=== PATIENT | male | born 1990 | race Caucasian/White ===

== ENCOUNTER 2023-10-09 00:24 | Emergency (ER) | payer OTHER, SELFPAY ==
[2023-10-09 00:36] VITALS: BP 163/104
[2023-10-09 01:26] LABS: Amphetamines Negative (Negative); Barbiturates Negative (Negative); Benzodiazepines Negative (Negative); Buprenorphine Negative (Negative); Cocaine Negative (Negative); Marijuana Negative (Negative); Methadone Negative (Negative); Methamphetamines Negative (Negative); Opiates Negative (Negative); Phencyclidine Negative (Negative); Tricyclic Antidepressants Negative (Negative)
--- NOTE | 2023-10-09 02:28 | ED.GENMED ---
History of Present Illness
General
Chief Complaint: Crisis Evaluation
Source: patient
Time Seen by Provider: 10/09/23 00:53
History of Present Illness
History of Present Illness:
This is a 32-year-old male who was brought in by police after mom and parents called 911. The patient reportedly sent a concerning suicide text. The patient has been thinking he was Lucifer and has had suicidal thoughts and considered hanging
himself. Also said he wanted to by a sword. Family found him with a wire in his hand when he showed up. On my evaluation patient does state that he 'sinned like Judas'. Patient states he has been suicidal. Clearly anabaptism hallucinations
during exam.
Past History
Past History
ED Past Medical History: Psychiatric (Anxiety, depression)
Phy Exam
Physical Exam
Physical Exam:
CONSTITUTIONAL Vital signs reviewed, Patient alert and oriented to person, place and time. Well-appearing
HEAD atraumatic, normocephalic.
EYES eyelids normal to inspection, Extraocular muscles intact, Conjunctiva normal, Sclera normal.
NECK normal range of motion, Trachea midline, no jugular venous distention.
RESP no respiratory distress
BACK No obvious deformities
UPPER EXTREMITY Gross Range of motion normal, gross motor strength normal
LOWER EXTREMITY Gross range of motion normal, Gross motor strength normal
NEURO Speech normal, No focal motor deficits include, Supa coma scale 15, Memory normal, Cranial Nerves intact to screening exam.
SKIN Skin warm, dry, and normal in color.
PSYCHIATRIC Patient oriented to person place and time, strange affect. Poor insight.
Course
Orders/Labs/Results
Orders:
Orders
10/09/23 01:05
Drug Screen, Urine [Urine Drug Abuse Screen] Urgent
Date Specimen was Collected: 10/09/23
Time Specimen was Collected: 01:04
10/09/23 01:33
Crisis Consult Urgent
Reason for Consult: pt hallucinating, thinks he is Lucifer, or Thomas
10/09/23 05:24
Asenapine Sublingual [Saphris] 10 mg SL NOW STA
Vital Signs
Initial and Last Documented VS:
Initial Vital Signs
Temp Pulse Resp BP Pulse Ox
98.2 F 97 16 163/104 98
10/09/23 00:36 10/09/23 00:36 10/09/23 00:36 10/09/23 00:36 10/09/23 00:36
Last Documented Vital Signs
Temp Pulse Resp BP Pulse Ox
98.2 F 98 16 154/91 97
10/09/23 00:36 10/09/23 05:45 10/09/23 05:45 10/09/23 05:45 10/09/23 05:45
MDM/Problems Addressed
MDM/Problems Addressed:
Acute psychosis
*Pulse Oximetry
Patient hypoxic: no
*Critical Care Note
Total Time (30-74mins, 75-104mins- exclusive of procedures): Not Applicable
Data Reviewed
Source: patient
Further Testing Considered But Not Given:
Consider head CT but no focal deficits and no trauma
Patient Management
Escalation/DeEscalation of care consider admission/obs:
Patient clearly with psychosis. Threatened suicide. Reportedly had axes at home. Patient is agreeable to psychiatric help but 302 backup written by parents. Await placement
ED Attending Note
-
Portions of this chart may have been created with voice recognition software.� Occasional wrong word or��sound alike� substitutions may have occurred due to the inherent limitations of voice recognition software.
Discharge Plan
Departure
Patient Disposition: Psych Facility
Date of Disposition: 10/09/23
Time of Disposition: 02:28
Discharge Problem:
Psychosis
Referrals:
UNKNOWN - PT NOT,INTERVIEWE [Family Provider] -
Interventions
Interventions:
*Risk Screen - Suicide Last Done: 10/09/23 05:30
*General Assessment Last Done: 10/09/23 05:30
*Neglect/Abuse Screening Last Done: 10/09/23 05:30
*ED COVID-19 Vaccine History Last Done: 10/09/23 00:36
ED-Psychological Assessment Last Done: 10/09/23 01:07
Discharge Date and Time
Print Language: TRINIDADIAN
[2023-10-09] MEDS: SAPHRIS 10 MG SL (05:28)
[2023-10-09 05:30] VITALS: BP 153/88
[2023-10-09 05:45] VITALS: BP 154/91
== END 2023-10-09 11:17 ==
LOC: EMR 00:24
PROVIDERS: CONSULT PHYSICIAN Psychiatry & Neurology Psychiatry; EMERGENCY PHYSICIAN Emergency Medicine
DX: F23 Brief psychotic disorder (principal); Z65.3 Problems related to other legal circumstances
CPT/HCPCS: 99285; 80306

== ENCOUNTER 2023-11-21 09:39 | Emergency (ER) | payer OTHER, SELFPAY ==
--- NOTE | 2023-11-21 09:57 | EDRN ---
Pt breathing very fast and rubbing his head very hard and crying out loudly on arrival to room in w/c. Dr. Luke in room w/ pt now. Both parents in room w/ pt now.
[2023-11-21 10:03] VITALS: BMI 21.8
[2023-11-21 10:16] VITALS: BP 140/93
--- NOTE | 2023-11-21 10:16 | ED.GENMED ---
History of Present Illness
General
Chief Complaint: Psychiatric Problem
Source: family
Exam Limitations: clinical condition
Time Seen by Provider: 11/21/23 10:00
History of Present Illness
History of Present Illness:
33-year-old male with a recent diagnosis of schizophrenia. Currently on bupropion 150 mg twice daily and Caplyta 42 mg daily. He was admitted in [place] and discharged about 6 weeks ago he has had aggression of symptoms over the week. Most of his
paranoia and psychosis is related to druze issues. He is not eating not sleeping not caring for self.
Past History
Past History
ED Past Medical History: Psychiatric (Anxiety, depression)
Review of Systems
Review of Systems
All Other Systems: Not applicable
Respiratory: Reports no symptoms
Cardiac: Reports no symptoms
Phy Exam
Physical Exam
Physical Exam:
GENERAL: Patient initially in a wheelchair being wheeled down the matt screaming yelling severe tremors. Eyes very wide open
EYE: Orbits normal.
NECK: Supple
ENT: Pharynx without erythema
CARDIAC: Tachycardic and regular
LUNGS: Hyperventilating
ABDOMEN: Soft, without focal tenderness or distention
NEUROLOGICAL: Nonfocal. Alert. Aware of his name knows his parents. Knows his age. Thinks he is in heaven. No cogwheeling. No muscle rigidity
SKIN: Warm and dry, no rash or lesion, no discoloration, skin intact.
MUSCULOSKELETAL: No edema,no deformity.Good color
PSYCH: Acutely psychotic. Paranoid delusions concerning druze issues
Course
Orders/Labs/Results
Orders:
Orders
11/21/23 10:00
Crisis Consult Urgent
Reason for Consult: psychotic breakdown
11/21/23 10:04
EKG [Electrocardiogram (*1)] Urgent
Reason for Study: QTc Monitoring
EKG- Treatment ONCE
11/21/23 10:11
Acetaminophen Urgent
Alcohol Urgent
Complete Blood Count/With Diff Urgent
Comprehensive Metabolic Panel Urgent
Creatine Phosphokinase Urgent
TSH Reflex To Free T4 Urgent
11/21/23 10:20
Asenapine Sublingual [Saphris] 10 mg SL NOW STA
11/21/23 11:01
Add On- LAB Urgent
Tests Added?: cpk,aspirin,tylenol
11/21/23 11:03
Lorazepam [Ativan] 1 mg PO Q4HPRN PRN
11/21/23 11:28
Urinalysis Urgent
Date Specimen was Collected: 11/21/23
Time Specimen was Collected: 11:26
Comment: ADD ON
Urine Drug Abuse Screen Urgent
Date Specimen was Collected: 11/21/23
Time Specimen was Collected: 11:26
11/21/23 12:06
Add On- LAB Urgent
Tests Added?: urinalysis
11/21/23 12:42
BMP [Basic Metabolic Panel] Urgent
Salicylate Urgent
Comment: ADD ON
11/21/23 13:14
Add On- LAB Urgent
Tests Added?: aspirin
11/21/23 20:00
Asenapine Sublingual [Saphris] 10 mg SL BID
Abnormal Lab Results
11/21/23 11/21/23 11/21/23
10:11 11:28 12:42
Absolute Monos (auto) 1.1 H 10^3/uL
(0.1-0.6)
Monocytes % 12.1 H %
(1.7-9.3)
Chloride 95 L mmol/L
(98-107)
Carbon Dioxide 11 L* mmol/L
(22-30)
Glucose 113 H mg/dl
(70-99)
Calcium 10.5 H mg/dl
(8.4-10.2)
ALT 51 H U/L
(0-50)
Total Protein 8.3 H g/dl
(6.3-8.2)
Albumin 5.8 H g/dl
(3.5-5.0)
Urine Ketones 1+ A
(Negative)
Salicylates < 1.0 L mg/dl
(2.0-20.0)
Acetaminophen < 10 L ug/ml
(10-30)
11/21/23 10:11
11/21/23 12:42
Vital Signs
Initial and Last Documented VS:
Initial Vital Signs
Temp Pulse Resp BP Pulse Ox
98.9 F 130 18 140/93 98
11/21/23 10:16 11/21/23 10:16 11/21/23 10:16 11/21/23 10:16 11/21/23 10:16
Last Documented Vital Signs
Temp Pulse Resp BP Pulse Ox
98.9 F 100 18 125/80 98
11/21/23 10:16 11/21/23 11:30 11/21/23 11:30 11/21/23 11:30 11/21/23 11:30
MDM/Problems Addressed
Differential Diagnosis Includes:
Patient with a psychotic breakdown. Danger to self. Clearly warrants inpatient psychiatric management. Doubt acute medical issue. EKG done to evaluate QT interval. He does have some nonspecific T wave changes but this is not a ischemic cardiac
issue. Likely rate related. Will order Saphris. Psychiatry was consulted along with crisis immediately. Psychiatry, wonderfully was present almost immediately on evaluation. Agree with Saphris. Doubt acute medical issue but labs thyroid
pending. No acute issues with drug or alcohol. Reported alcohol issues in his 20s
*Pulse Oximetry
Patient hypoxic: no
*EKG
Interpreted by ED Provider?: Yes
Interpretation: abnormal
Comparison EKG: no comparison EKG present
Heart Rate: 129
Rate: tachycardiac
Rhythm: sinus
Hershey: normal axis
Interval: normal interval
QRS Pattern: normal QRS
Ischemia: T-wave inversion
Data Reviewed
Review of Other/Old Records Reveals: Labs and Other (Previous ER evaluation)
Update Note
Update Note:
1225... Patient has been resting comfortably. Seen by psychiatry. Medically stable except for a anion gap metabolic acidosis. Lactic today combination of muscle activity almost seizure-like activity prior to ER evaluation and possible
ketoacidosis. We will repeat the BMP now.
Patient medically cleared and stable.
I was asked to reevaluate the patient. There was concerns for observation that some of his tremors might be seizures. However I witnessed these episodes and these were clearly tremors. He had no loss of consciousness no no postictal issue. He
currently is mildly sleepy but cooperative.
ED Attending Note
-
Portions of this chart may have been created with voice recognition software.� Occasional wrong word or��sound alike� substitutions may have occurred due to the inherent limitations of voice recognition software.
Discharge Plan
Departure
Patient Disposition: Psych Facility
Date of Disposition: 11/21/23
Time of Disposition: 13:43
Discharge Problem:
Paranoid psychosis. History of schizoph
Prescriptions:
No Action
bupropion HCl [Wellbutrin] 100 mg Tablet
150 mg PO BID
Caplyta 42 mg Capsule
42 mg PO HS
Referrals:
NONE,* [Family Provider] -
Interventions
Interventions:
*Risk Screen - Suicide Last Done: 11/21/23 10:29
*General Assessment Last Done: 11/21/23 10:29
*Neglect/Abuse Screening Last Done: 11/21/23 10:29
ED- Fall Risk Assessment Last Done: 11/21/23 10:29
*ED COVID-19 Vaccine History Last Done: 11/21/23 10:28
ED-Psychological Assessment Last Done: 11/21/23 10:32
Discharge Date and Time
Print Language: ESTONIAN
[2023-11-21 10:17] LABS: % Basophils 0.3 % (0-2); % Eosinophils 0.9 % (0-6); % Immature Granulocytes 0.5 % (0-0.5); % Lymphocytes 22.7 % (20.5-51.1); % Monocytes 12.1 % (1.7-9.3); % Neutrophils 63.5 % (42.2-75.2); Absolute Eosinophils 0.1 10^3/uL (0-0.7); Absolute Monocytes 1.1 10^3/uL (0.1-0.6); Absolute Neutrophils 5.6 10^3/uL (1.4-6.5); Hematocrit 41.9 % (39.0-52.0); Hemoglobin 14.7 g/dL (13.0-18.0); Mean Corp Hgb Conc. 35.1 g/dL (33.0-37.0); Mean Corpuscular Hgb 29.8 pg (27.0-31.0); Mean Corpuscular Volume 84.8 fL (80.0-94.0); Mean Platelet Volume 8.8 fL (7.4-10.4); Nucleated Red Blood Cells % 0 % (-); Platelet Count 319 10^3/uL (130-400); Red Blood Cell Count 4.94 10^6/uL (4.70-6.10); Red Cell Dist. Width 12.9 % (11.5-14.5); White Blood Cell Count 8.8 10^3/uL (4.8-10.8)
[2023-11-21] MEDS: SAPHRIS 10 MG SL ×2 (10:22→19:43)
--- NOTE | 2023-11-21 10:26 | EDRN ---
Pt is calmer but not speaking, staring at me or at barillas. Pt at times has outburst, last one- pt stated over and over, 'I am Angelo Thomas.'. Pt is redirectable. And stops movement and hyperventilating when told to RELAX.
--- NOTE | 2023-11-21 10:31 | EDRN ---
Psychiatrist who was speaking w/ parents is now speaking w/ pt.
[2023-11-21 10:45] LABS: Albumin 5.8 g/dl (3.5-5.0); Alkaline Phosphatase 61 U/L (38-126); Blood Urea Nitrogen 16 mg/dl (9-20); Calcium 10.5 mg/dl (8.4-10.2); Carbon Dioxide 11 mmol/L (22-30); Chloride 95 mmol/L (98-107); Estimated Creatinine Clearance 97 ml/min; Glucose 113 mg/dl (70-99); Potassium 3.8 mmol/L (3.5-5.1); Sodium 137 mmol/L (135-145); Total Bilirubin 0.8 mg/dl (0.2-1.3); Total Protein 8.3 g/dl (6.3-8.2); eGFR > 60.00
--- NOTE | 2023-11-21 11:06 | CON.MD ---
Consultation - Medical
-
33 y/o single male brought to hospital by parents due to worsening of psychiatric condition. He has not slept for about five days, has been fasting with shinto reasoning, and has been preoccupied with shinto thoughts including that he is a
sinner. He was seen in ED 10/08/58 with psychotic symptoms and thoughts of hanging himself (had a wire). Was voluntarily hospitalized at [facility] and discharged on Caplyta 42 mg. and Wellbutrin. The insurance would not approve the medicine and he
as been given samples through [facility] where he completed the PHP program and is supposed to start TOP tomorrow (there was some lag because of paperwork).
Parents provided most of the information as Mt's thinking is quite slow and he is guarded.
He has written a 1000 pg. book in a year, but will not share it with parents anyone else. Reads philosophy. Raised Sabianism, is now gravitating to Buddhism. He has refused to apply for SSD. Has not worked in 3 years. Has not had romantic
relationships for about 8 years. Is generally depressed, but apparently also has manic symptoms, such as recently not sleeping.
No medical problems reported; Penicillin allergy.
Drank heavily (per parents) in his 20's and then stopped on his own. No illicit drug use. Was prescribed Adderall by an [facility] doctor which made him more manickly (not recently taken; may have over-used). Had been treated with Wellbutrin
for depression. Because of concerns about weight gain, has refused most antipsychotic medicines by parents' report.
Parents . Has older brother, Keagan. No family history of serious mental illness. Maternal grandfather may have had depression due to serving in WWII.
No guns in his home or parents' home.
MSE: Medium build bearded man well groomed wearing scrubs. Was chalo Bartholomew a few minutes before my interview. Alert and seemingly oriented. Stares and appears guarded. Reports feeling 'fearful of the Lord.' Unclear regarding suicidal ideation,
but sees himself as worthless. Does not seem at all future-oriented. Regards himself as a sinner. Praying to himself (silently) during the interview. Having auditory hallucinations of God's voice; denies commands. No evidence of homicidal
ideation. Has significant thought blocking and poverty of speech. Judgment has been very poor. Limited insight.
Diagnosis: Schizoaffective Disorder, Bipolar Type
Plan: Stop Caplyta which has been ineffective and start Saphris 10 mg. BID. Would hold on Wellbutrin for now, but this could be considered later. Requires in-patient stabilization due to severity of symptoms and failure to respond to lower level
of care (PHP). Has history of suicidal ideation which may still be present. Given that he goes on fasts for psychotic reasons, he is unable to care for himself.
Parents encouraged to complete 302 in event he will not admit himself to a hospital. Parents report that [facility] said he should return there should he need hospitalization; psych social worker aware.
I have ordered Saphris 10 mg. BID and Ativan 1 mg.PO Q4 H PRN.
[2023-11-21 11:08] LABS: TSH Reflex To Free T4 1.53 uIU/ml (0.47-4.68)
[2023-11-21 11:30] VITALS: BP 125/80
--- NOTE | 2023-11-21 11:30 | EDRN ---
Pt was administered a large cup of water and he had finished it at this time.
[2023-11-21 11:35] LABS: Alcohol None Detected
[2023-11-21 11:36] LABS: ALT (SGPT) 51 U/L (0-50); AST (SGOT) 38 U/L (17-59)
[2023-11-21 11:47] LABS: Acetaminophen < 10 ug/ml (10-30); Creatine Phosphokinase 85 U/L (55-170)
[2023-11-21 11:55] LABS: Amphetamines Negative (Negative); Barbiturates Negative (Negative); Benzodiazepines Negative (Negative); Buprenorphine Negative (Negative); Cocaine Negative (Negative); Marijuana Negative (Negative); Methadone Negative (Negative); Methamphetamines Negative (Negative); Opiates Negative (Negative); Phencyclidine Negative (Negative); Tricyclic Antidepressants Negative (Negative)
--- NOTE | 2023-11-21 11:55 | EDRN ---
Pt OOB to BR w/ urine spec obtained at this time.
[2023-11-21 12:20] LABS: Urine Albumin Negative (Neg - Trace); Urine Bilirubin Negative (Negative); Urine Character Clear (Clear); Urine Color Yellow; Urine Glucose Negative (Negative); Urine Ketone 1+ (Negative); Urine Leukocyte Negative (Negative); Urine Nitrite Negative (Negative); Urine Occult Blood Negative (Negative); Urine Urobilinogen Negative (Neg - 1+)
--- NOTE | 2023-11-21 12:35 | EDRN ---
Second BMP drawn and sent. Pt was cooperative but, said- 'I need redemption for claiming I am Angelo Guzman.' Pt also staring a lot.
--- NOTE | 2023-11-21 12:40 | EDRN ---
Pt administered another lg cup of water at this time.
--- NOTE | 2023-11-21 12:48 | EDRN ---
Pt OOB to BR at this time.
[2023-11-21 13:03] LABS: Blood Urea Nitrogen 17 mg/dl (9-20); Calcium 9.6 mg/dl (8.4-10.2); Carbon Dioxide 25 mmol/L (22-30); Chloride 98 mmol/L (98-107); Estimated Creatinine Clearance 122 ml/min; Glucose 98 mg/dl (70-99); Potassium 4.1 mmol/L (3.5-5.1); Sodium 135 mmol/L (135-145); eGFR > 60.00
--- NOTE | 2023-11-21 13:27 | EDRN ---
Pt has been offered food on arrival and at 12:40 and now. Pt is declining all food at this time. Pt only drank 1/3rd for second cup of water as of now. Pt administered two warm blankets as he was bundling up and looked cold. Pt was asked if he
needed anything else and said-'I need Thomas's redemption.'
[2023-11-21 13:32] LABS: Salicylate < 1.0 mg/dl (2.0-20.0)
[2023-11-21] MEDS: ATIVAN 1 MG PO (14:30)
--- NOTE | 2023-11-21 14:50 | EDRN ---
At 14:10 this RN was called to pt's room by ED PCT Irais. Crisis had just discussed pt's status 201 vs 302 w/ pt. Immediately after pt left pt started grabbing himself with his arms strongly and attempting to stop breathing w/ face turning red and
then would stop. Dr. Luke saw this motion that was occuring intermittently, diagnosing it as pseudo seizure as pt was responding at times. pt was saying he cannot control these motions but is definitely aware of them occuring. Pt at 14:30 was
administered ativan po as ordered. Pt was moved to -2 and report was given to Nidhi. general farmworker said she needs a signature from pt for voluntary placement at a facility w/ open bed. Dr. Luke would do a 302 if pt does not sign for voluntary.
Pt having repetitive pseudo siezures. Pt agreed to sign paperwork during a non-pseudo seiZure so community center worker called. Mother was crying in family room as to she wants pt to go only to [place] and if not wants him to go home w/ her and her spouse.
Mother was upset and said she did not want to see pt like that. Father wanted to see pt though pt requested not to see his father and was asked 3 times if father could see him.
[2023-11-21 20:00] VITALS: BP 135/86
[2023-11-21 21:00] VITALS: BP 136/78
== END 2023-11-21 21:40 ==
LOC: EMR 09:39
PROVIDERS: EMERGENCY PHYSICIAN Emergency Medicine; OTHER PHYSICIAN Psychiatry & Neurology Psychiatry
DX: F20.0 Paranoid schizophrenia (principal); R25.1 Tremor, unspecified; R06.4 Hyperventilation; R44.0 Auditory hallucinations; R00.0 Tachycardia, unspecified; F41.9 Anxiety disorder, unspecified; F25.0 Schizoaffective disorder, bipolar type; F32.A Depression, unspecified; Z91.51 Personal history of suicidal behavior; Z88.0 Allergy status to penicillin
CPT/HCPCS: 99285; 80048; 80053; 80143; 80179; 80306; 81003; 82077; 82550; 84443; 85025; 93005